=== PATIENT | male | born 1990 | race African-American/Black ===

== ENCOUNTER 2016-08-31 18:23 | Emergency (ER) | payer OTHER ==
[~2016-08-31] VITALS: Ht 180.3 cm; Wt 139.0 kg
[2016-08-31] MEDS ORDERED: CORTIZONE-10 PL57 GM TP (21:45)
[2016-08-31] MEDS ORDERED: ATARAX,VISTARIL50 MG PO (21:45)
[2016-08-31 22:11] VITALS: BP 131/74
== END 2016-08-31 22:14 | disposition home or self-care (01) ==
LOC: EME 18:23 → RME 18:23 → EME 22:14
DX: S30.871A Other superficial bite of abdominal wall, initial encounter (principal); L29.9 Pruritus, unspecified; W57.XXXA Bitten or stung by nonvenomous insect and other nonvenomous arthropods, initial encounter; Y92.59 Other trade areas as the place of occurrence of the external cause; Z87.891 Personal history of nicotine dependence
CPT/HCPCS: 99281; 99284; Q0177